=== PATIENT | male | born 1990 | race Caucasian/White ===

== ENCOUNTER 2022-06-20 14:37 | Emergency (ER) | payer BC ==
[~2022-06-20] VITALS: Ht 180.3 cm; Wt 97.5 kg
[2022-06-20] MEDS ORDERED: CEFADROXIL500 MG PO (20:38)
== END 2022-06-20 20:46 | disposition home or self-care (01) ==
LOC: ER 14:37
DX: S81.022A Laceration with foreign body, left knee, initial encounter (principal); W18.39XA Other fall on same level, initial encounter; Y93.89 Activity, other specified; Y92.89 Other specified places as the place of occurrence of the external cause